=== PATIENT | female | born 1955 | race Asian ===

== ENCOUNTER 2024-04-11 07:46 | Inpatient (IN) | payer MEDICARE, BC ==
[2024-04-11] VITALS (27 sets, daily range): BP systolic 122–145; BP diastolic 69–85; TEMP 97.6–99.2; O2SAT 96–100
[~2024-04-11] VITALS: Ht 162.6 cm; Wt 56.7 kg
--- NOTE | 2024-04-11 00:10 | NUR ---
RN NOTES SEEN AND ASSESSED BY DR. AFSANEH SARABIA, NEUROLOGIST VIA TELE NEURO, WITH NEW ORDER TRANSFER TO HIGHER LEVEL OF CARE FOR THROMBECTOMY. Addendum: 04/12/24 at 0435 by GIL WAKEFIELD RN WRONG TIME, IT SHOULD BE 04/12/24 0010
--- NOTE | 2024-04-11 08:00 | NUR ---
BIB [facility] FROM HOME,S/P SEIZURE,BLOOD SUGAR 123. PT IS IN ROOM WITH HOB > 40 DEGREES, ON THE MONITOR AT THIS TIME, AND SEIZURE PRECAUTIONS HAVE BEEN IMPLEMENTED.
[2024-04-11 08:20] LABS: BASOPHILS % (AUTO) 0.5 % (0.0-2.0); EOSINOPHILS # (AUTO) 0.2 K/uL (0.0-0.7); EOSINOPHILS % (AUTO) 2.3 % (0.0-6.0); HEMATOCRIT 40 % (33-45); HEMOGLOBIN 13.2 g/dL (11.5-14.8); LYMPHOCYTES # (AUTO) 1.5 K/uL (0.8-4.8); LYMPHOCYTES % (AUTO) 20.8 % (20.0-44.0); MEAN CORPUSCULAR HEMOGLOBIN 32 PG (26.0-33.0); MEAN CORPUSCULAR HGB CONC 33 g/dl (31.0-36.0); MEAN CORPUSCULAR VOLUME 96 fL (82-100); MONOCYTES # (AUTO) 0.5 K/uL (0.1-1.30); MONOCYTES % (AUTO) 6.6 % (2.0-12.0); NEUTROPHILS % (AUTO) 69.8 % (43.0-81.0); PLATELET COUNT (AUTO) 239 K/uL (150-450); RED BLOOD CELL COUNT(AUTO) 4.13 MIL/uL (4.0-5.2); RED CELL DISTRIBUTION WIDTH 13.2 % (11.5-15.0); WHITE BLOOD COUNT (AUTO) 7.1 K/uL (4.3-11.0)
[2024-04-11] MEDS: IV NS 0.9% 1,000 ML BAG IV ONE (08:26)
[2024-04-11 08:33] LABS: ALCOHOL, BLOOD < 3 mg/dL (0-10); CALCIUM, SERUM 9.3 mg/dL (8.5-10.1); CARBON DIOXIDE 29 mmol/L (21-32); CHLORIDE 102 mmol/L (98-107); CREATININE 0.8 mg/dL (0.6-1.3); GLUCOSE 115 mg/dL (74-106); POTASSIUM 3.7 mmol/L (3.5-5.1); SODIUM SERUM 139 mmol/L (136-145); UREA NITROGEN, BLOOD 19 mg/dL (7-18)
--- NOTE | 2024-04-11 08:38 | NUR ---
PT BLOODSUGAR 113 AT THIS TIME AND IS AT THE BEDSIDE AT THIS TIME
[2024-04-11 08:51] LABS: PHENOBARBITAL 1 ug/ml (15-39); PHENYTOIN (DILANTIN) < 0.5 ug/ml (10.0-20.0)
[2024-04-11 08:54] LABS: VALPROIC ACID < 3 ug/mL (50-100)
[2024-04-11] MEDS ORDERED: IPRATROPIUM NEB FS 0.5 MG/2.5 ML AMPUL.NEB ONE (09:12)
[2024-04-11] MEDS ORDERED: ALBUTEROL FS 2.5 MG/3 ML VIAL.NEB ONE (09:12)
[2024-04-11] MEDS: IPRATROPIUM NEB FS 0.5 MG/2.5 ML AMPUL.NEB NEB ONE (09:17)
[2024-04-11] MEDS: ALBUTEROL FS 2.5 MG/3 ML VIAL.NEB NEB ONE (09:17)
--- NOTE | 2024-04-11 09:22 | NUR ---
Move sheet submitted (ALOC aspiration,unstable, LOIS)
--- NOTE | 2024-04-11 09:57 | NUR ---
PATIENT FOUND IN THE ER WITH NRB 15L, NOT AWAKE, AND BREATH SOUND WERE RALES WITH WHEEZING. PATIENT WERE ALSO GIVING BREATH TREATMENT. CURRENTLY, ON HFNC 40L, 40% PER M.D ORDER. PATIENT WILL CONTINUE TO BE MONITOR. Addendum: 04/11/24 at 1005 by TEVIN HARRINGTON RT Amended: Links added.
--- NOTE | 2024-04-11 09:57 | NUR ---
PT PLACED ON HIGH FLOW AT THIS TIME BY RT. SETTINGS 40L/MIN AND 40%
--- NOTE | 2024-04-11 10:03 | NUR ---
PT HAS LEFT FLOOR TO GO TO CT
--- NOTE | 2024-04-11 10:13 | NUR ---
PT HAS RETURNED FROM CT AT THIS TIME
--- NOTE | 2024-04-11 10:48 | NUR ---
Andre fonesca in [facility] - 04/11/24 at 1048 by SCAR [email or web address]
--- NOTE | 2024-04-11 10:58 | NUR ---
GAVE REPORT TO BERLIN
--- NOTE | 2024-04-11 11:20 | NUR ---
PT TRANSFERRED TO #105/1 USING 2 SPRAY DRIER PROTOCOL.
[2024-04-11] MEDS: LORAZEPAM INJ 2 MG/ML VIAL IV PRN (11:38)
--- NOTE | 2024-04-11 11:40 | NUR ---
RN LOIS NOTE Received patient at 1120, noted patient was having seizure like activity MD was immediately notified. Noted new order and carried out. Patient is currently in bed resting with her eyes closed. Received patient on high flow NC at 40 LPM No respiratory distress noted at this time. Patient is at 95% saturation blood pressure noted at 143/85 HR 84 RR 18. is at bed side. Patient has no further concerns noted at this time, noted with NC on Left AC.
[2024-04-11] MEDS ORDERED: Z GUARD REMEDY 4 OZ OINT TP PRN (13:30)
[2024-04-11] MEDS ORDERED: ONDANSETRON HCL/PF 4 MG/2 ML VIAL IVP PRN (13:30)
[2024-04-11] MEDS ORDERED: LEVO100T9 PO (13:45)
[2024-04-11] MEDS ORDERED: FOLI0.4T6 PO (13:45)
[2024-04-11] MEDS ORDERED: LAMO200T10 PO (13:45)
[2024-04-11] MEDS ORDERED: DICL75TA5 PO (13:45)
[2024-04-11] MEDS ORDERED: DICL100G34 TP (13:45)
[2024-04-11] MEDS ORDERED: LOSA25TA27 PO (13:45)
[2024-04-11] MEDS ORDERED: ONDA4TAB11 PO (13:45)
[2024-04-11] MEDS ORDERED: ATOR20TA PO (13:45)
[2024-04-11] MEDS ORDERED: HYDR-3980 PO (13:45)
[2024-04-11] MEDS ORDERED: AMLO-213 PO (13:45)
[2024-04-11] MEDS ORDERED: METH2.5T14 PO (13:45)
--- NOTE | 2024-04-11 15:52 | NUR ---
CRAPS DEALER NOTES New order from Dr. Landin for STAT ABG. Noted and carried out. RT made aware.
--- NOTE | 2024-04-11 16:02 | NUR ---
RN LOIS NOTE Patient was transferred to ICU for higher level of care. Patient was still unresponsive not waking up. Patient continued on high flow NC at 40 LPM.
[2024-04-11 16:07] LABS: ABG BASE EXCESS 1.9 mmol/L (-2.0-3.0); ABG OXYGEN SATURATION 98.3 % (94.0-98.0); ABG PCO2 35.4 mmHg (32.0-45.0); ABG PO2 121.3 mmHg (83.0-108.0); ABG TOTAL HEMOGLOBIN 14.3 G/dL (12.0-16.0); AaDO2 123.2 mmHg; COHb 0.3 % (0.5-1.5); MetHb 0.1 % (0.0-1.5); O2Hb 97.9 % (94.0-97.0); SITE, ABG Right Radial; VENT MODE, BG HFNC 40%
[2024-04-11] MEDS: LEVETIRACETAM (500MG) 500 MG in IV NS 0.9% 100 ML IV SCH (16:27)
--- NOTE | 2024-04-11 18:00 | NUR ---
rn note updated (neurologist) with pt's condition. pt noted to have twitching, primary md aware. increased dose of Keppra to 1000 mg one time dose now and to start keppra 1000 mg tonight at 2100 and to notify md if twitching does not stop. Addendum: 04/11/24 at 1933 by KIA PEREA RN keppra 1000 mg tonight at 2100 q12 hours. aware of pt's mental status at this time, abg result pending
[2024-04-11] MEDS: LEVETIRACETAM (500MG) 1,000 MG in IV NS 0.9% 90 ML IV ONE (18:30)
--- NOTE | 2024-04-11 19:15 | NUR ---
RN OPENING NOTES RECEIVED PATIENT ON BED, NON VERBAL , NON RESPONSIVE. ON HIGH FLOW NASAL CANULA @ 40 LPM, FIO2- 40%, RESPIRATORY EVEN AND UNLABORED, NO SOB NOTED. AFEBRILE, NOT IN DISTRESS. NOTED WITH RAC # 20 AND LAC # 18 PERIPHERAL LINE, FLUSHED WITH NS, NO S/S OF INFILTRATION NOTED, RUNNING WITH D5 1/2 NS@ 75 ML/HR. PHIPPS CATHETER IN PLACED. PATENT DRAINING WITH CLEAR YELLOW URINE VIA GRAVITY. BED IN LOWEST POSITION LOCKED, BED ALARM ARMED. CALL LIGHT WITH IN REACH. ON GOING PLAN OF CARE. AT BEDSIDE.
--- NOTE | 2024-04-11 19:23 | NUR ---
icu transfer note received pt from Paulie varela RN. pt at this time nonverbal, not responsive. responds to painful stimuli. iv intact, patent and flushing well. on tele monitor. vital signs stable. on high flow nc at 40 L tolerating ordered settings well. all safety measures in place. bed locked in lowest position. side rails up x2. bed alarm on. call light within reach. at bedside Addendum: 04/11/24 at 1926 by KIA PEREA RN breathing even and unlabored Addendum: 04/11/24 at 1931 by KIA PEREA RN no respiratory distress noted at this time
--- NOTE | 2024-04-11 19:31 | NUR ---
rn note pending result of ABG, table games shift manager rn aware
[2024-04-11 19:42] LABS: ABG BASE EXCESS 2.2 mmol/L (-2.0-3.0); ABG OXYGEN SATURATION 98.2 % (94.0-98.0); ABG PCO2 38.4 mmHg (32.0-45.0); ABG PH 7.451 (7.350-7.450); ABG PO2 130.1 mmHg (83.0-108.0); ABG TOTAL HEMOGLOBIN 13.9 G/dL (12.0-16.0); COHb 0.3 % (0.5-1.5); MetHb 0.4 % (0.0-1.5); O2Hb 97.5 % (94.0-97.0); SITE, ABG Right Radial; VENT MODE, BG HFNC 40
--- NOTE | 2024-04-11 20:00 | NUR ---
RN NOTES FAMILY WILL STAY OVER, HOSPITALIST EDEN DE LA FUENTE NP AND RN DIE HARDENER MADE AWARE.
[2024-04-11] MEDS: LEVETIRACETAM (500MG) 1,000 MG in IV NS 0.9% 90 ML IV SCH (21:20)
[2024-04-11] MEDS: ENOXAPARIN SODIUM 40 MG/0.4 ML DISP.SYRIN SQ SCH (21:21)
[2024-04-11] MEDS: IV D5/0.45 NACL 1,000 ML IV PRN (21:27)
--- NOTE | 2024-04-11 22:20 | NUR ---
RN NOTES SPOKE TO DR AMBROSE, WITH NEW ORDER STAT CT HEAD W/O CONTRAST NOTED AND CARRIED OUT.
--- NOTE | 2024-04-11 22:40 | NUR ---
RN NOTES PATIENT SENT TO CT
--- NOTE | 2024-04-11 23:00 | NUR ---
RN NOTES PT BACK FROM CT
--- NOTE | 2024-04-11 23:35 | NUR ---
RN NOTES Notified Dr. Montes De Oca regarding ct head- Hypoattenuating area involving the left cerebellum and left superior cerebellar peduncle may reflect acute ischemia. Recommend MRI for further evaluation. With new order STAT CTA brain, and CTA carotid and neck, and he will contact Hospitalist Emmanuel Schwartz. Emmanuel Schwartz, called the unit with new order, STAT CBC, CMP, ABG, COAG, EKG, code stroke activated, noted and carried out.
[2024-04-11] MEDS ORDERED: CT SWABBABLE VALVE TRANS SET 1 EA INFUS.SET MC ONE (23:45)
[2024-04-11] MEDS ORDERED: IV NS 0.9% 250 ML IV ONE (23:45)
[2024-04-11] MEDS ORDERED: IOHEXOL-350 100 ML VIAL IV ONE ×2 (23:45→23:58)
[2024-04-11 23:54] LABS: BASOPHILS % (AUTO) 0.2 % (0.0-2.0); EOSINOPHILS % (AUTO) 0.1 % (0.0-6.0); HEMATOCRIT 39 % (33-45); HEMOGLOBIN 12.7 g/dL (11.5-14.8); LYMPHOCYTES # (AUTO) 1.1 K/uL (0.8-4.8); LYMPHOCYTES % (AUTO) 8.8 % (20.0-44.0); MEAN CORPUSCULAR HEMOGLOBIN 32 PG (26.0-33.0); MEAN CORPUSCULAR HGB CONC 33 g/dl (31.0-36.0); MEAN CORPUSCULAR VOLUME 96 fL (82-100); MONOCYTES # (AUTO) 0.4 K/uL (0.1-1.30); MONOCYTES % (AUTO) 3.6 % (2.0-12.0); NEUTROPHILS # (AUTO) 10.5 K/uL (1.8-8.9); NEUTROPHILS % (AUTO) 87.3 % (43.0-81.0); PLATELET COUNT (AUTO) 246 K/uL (150-450); RED BLOOD CELL COUNT(AUTO) 4.02 MIL/uL (4.0-5.2); RED CELL DISTRIBUTION WIDTH 13.1 % (11.5-15.0)
[2024-04-11 23:59] LABS: CALCIUM, SERUM 8.9 mg/dL (8.5-10.1); CREATININE 0.6 mg/dL (0.6-1.3); POTASSIUM 3.8 mmol/L (3.5-5.1)
[2024-04-12] VITALS (15 sets, daily range): BP systolic 132–163; BP diastolic 79–97; TEMP 99.2; O2SAT 91–100
[2024-04-12 00:05] LABS: ALBUMIN 3.5 g/dL (3.4-5.0); INR 1.06 (0.91-1.10); PARTIAL THROMBOPLASTIN TIME 26.7 SEC (24.3-34.3); PROTHROMBIN TIME 11.2 SECS (9.2-11.1); TOTAL PROTEIN, SERUM 6.9 g/dL (6.4-8.2)
--- NOTE | 2024-04-12 00:10 | NUR ---
RT NOTE FIO2 INCREASED TO 60% POST ABG RESULTS. SPO2 @ 97-98%. KOSTAS CORDERO NOTIFIED AND IS AWARE.
--- NOTE | 2024-04-12 00:10 | NUR ---
RN NOTES SEEN AND ASSESSED BY DR. AFSANEH SARABIA, NEUROLOGIST VIA TELE NEURO, WITH NEW ORDER TRANSFER TO HIGHER LEVEL OF CARE FOR THROMBECTOMY.
[2024-04-12 00:13] LABS: ABG BASE EXCESS 3.7 mmol/L (-2.0-3.0); ABG OXYGEN SATURATION 94.4 % (94.0-98.0); ABG PCO2 40.6 mmHg (32.0-45.0); ABG PH 7.455 (7.350-7.450); ABG PO2 69.8 mmHg (83.0-108.0); ABG TOTAL HEMOGLOBIN 12.5 G/dL (12.0-16.0); AaDO2 168.7 mmHg; COHb 0.2 % (0.5-1.5); MetHb 0.3 % (0.0-1.5); O2Hb 93.9 % (94.0-97.0); SITE, ABG Right Radial; VENT MODE, BG HFNC 40
--- NOTE | 2024-04-12 00:50 | NUR ---
RN NOTES @0050 CALLED [facility], SPOKE TO JAMEE, FAX ALL PAPERS, PER JAMEE, NO BED AVAILABLE. @0120 CALLED [facility], SPOKE TO SAM, FAX ALL PAPERS, PER FABIAN, REALLY TIGHT ON ICU BED, WILL CALL TO GIVE UPDATE. .@0156 CALLED [facility], SPOKE TO FADY, FAX ALL PAPERS, PER FADY, SHE WILL PRESENT THE CASE TO NEUROLOGIST AND AND WILL CALL US BACK FOR UPDATE @0230 @0120 CALLED [facility], SPOKE TO ARABELLA, PER ARABELLA, THEY WANNA CALL THE HOSPITALIST FOR PEER TO PEER MEETING, HOSPITALIST NOT AVAILABLE AT THIS TIME. THEY WILL CALL BACK AGAIN.
[2024-04-12] MEDS ORDERED: ACETAMINOPHEN 650 MG/SUPP.RECT RC ONE (01:03)
--- NOTE | 2024-04-12 01:05 | NUR ---
RN NOTES ASPIRIN 300MG SUPPOSITORY ORDERED BY TELE NEURO DR. AFSANEH SARABIA, RELAYED TO HOSPITALIST EDEN DE LA FUENTE NOTED AND CARRIED OUT.
[2024-04-12] MEDS ORDERED: ASPIRIN 300 MG/SUPP.RECT RC ONE (01:09)
[2024-04-12] MEDS: ASPIRIN 300 MG/SUPP.RECT RC ONE (01:11)
--- NOTE | 2024-04-12 01:25 | NUR ---
RN NOTES PATIENT INTUBATED BY DR VALENZUELA, @ 0125 PREMEDICATED BY [employer]OF[employer], 0126 INTUBATED, SIZE 7.5 AND 22 CM BY THE LIP, AC- 16, TV- 500, FIIO2- 60% PEEP-5. WEIGHT - 56 KG.
--- NOTE | 2024-04-12 01:26 | NUR ---
RT NOTE PT ORALLY INTUBATED WITH 7.5 ET TUBE @ 22 CM MID LIP LINE. BILATERAL CHEST RISE NOTED. LARGE THICK YELLOW SECRETIONS NOTED. PT LAVAGED WITH NORMAL SALINE. B/S IMPROVED POST SX. ALARMS ON AND AUDIBLE. VENT PLUGGED TO RED OUTLET. PT RECEIVING ADEQUATE VOLUMES. SPO2 @ 100%. WILL CONTINUE TO MONITOR CLOSELY.
[2024-04-12] MEDS: PROPOFOL 100 ML IV PRN (02:35)
--- NOTE | 2024-04-12 02:50 | NUR ---
RN NOTES RECEIVED A CALL FROM [facility], THAT THEY WILL ACCEPT THE PATIENT, ACCEPTING MD DR. CELESTE. PATIENT IS GOING TO 8S ROOM 64 ICU NEURO TELE. AND ALSO CALL TRANSFERRED TO [facility], CODE 3 SIRSHANNAN. ETA 0345.
[2024-04-12 03:02] LABS: ABG BASE EXCESS 1.3 mmol/L (-2.0-3.0); ABG OXYGEN SATURATION 98.9 % (94.0-98.0); ABG PCO2 35.6 mmHg (32.0-45.0); ABG PO2 155.1 mmHg (83.0-108.0); ABG TOTAL HEMOGLOBIN 13.9 G/dL (12.0-16.0); AaDO2 233.5 mmHg; COHb 0.4 % (0.5-1.5); MetHb 0.4 % (0.0-1.5); O2Hb 98.1 % (94.0-97.0); SITE, ABG Right Radial
--- NOTE | 2024-04-12 03:20 | NUR ---
RN NOTES REPORT GIVEN TO KOSTAS ELAM ICU, TELE NEURO, [facility]. PATIENT IS GOING TO 8S ROOM 64.
[2024-04-12] MEDS ORDERED: SUCCINYLCHOLINE CHLORIDE 20 MG/ML VIAL IV ONE (03:59)
--- NOTE | 2024-04-12 04:00 | NUR ---
RN NOTES PATIENT TRANSFERRED TO [facility]IA [facility], ACCOMPANIED BY 3 EMT'S. CODE 3 DEIRDRE. PATIENT LEFT HOSPITAL IN STABLE CONDITION. FAMILY AT BEDSIDE AND WILL FOLLOW THEM TO [facility].
[2024-04-12] MEDS ORDERED: PANTOPRAZOLE 40 MG VIAL IV SCH (09:00)
== END 2024-04-12 04:00 | disposition short-term general hospital (02) | DRG 100 ==
LOC: ER 07:46 → TELE-TD 10:49 → ICU 15:50
PROC: 5A1935Z Respiratory Ventilation, Less than 24 Consecutive Hours (ICD-10-PCS; principal; 2024-04-12)
PROC: 0BH17EZ Insertion of Endotracheal Airway into Trachea, Via Natural or Artificial Opening (ICD-10-PCS; 2024-04-12)
DX: G40.909 Epilepsy, unspecified, not intractable, without status epilepticus (principal); I63.02 Cerebral infarction due to thrombosis of basilar artery; I63.543 Cerebral infarction due to unspecified occlusion or stenosis of bilateral cerebellar arteries; R29.736 NIHSS score 36; I10 Essential (primary) hypertension; M06.9 Rheumatoid arthritis, unspecified; Z87.81 Personal history of (healed) traumatic fracture; E03.9 Hypothyroidism, unspecified; E78.5 Hyperlipidemia, unspecified
CPT/HCPCS: 31720; 36415; 36600; 70450-TC; 70496-TC; 70498-TC; 71045-TC; 80048-TC; 80053-TC; 80164-TC; 80184; 80185-TC; 82803-TC; 82962-TC; 85025-TC; 85730-TC; 94002-TC; 94799-TC; A4223; G0378; G0480; J0330; J1650; J1953; J2060; J3490; J7030; J7050; Q9967